=== PATIENT | male | born 1975 | race American Indian/Alaskan Native ===

== ENCOUNTER 2019-02-03 10:28 | Emergency (ER) | payer OTHER ==
[2019-02-03 10:42] VITALS: BP 138/90
--- NOTE | 2019-02-03 11:25 | Emergency Department Report ---
ED ENT HPI - General Chief complaint: Urogenital-Male Stated complaint: CHECK UP/STD Time Seen by Provider: 02/03/19 11:10 Source: patient Mode of arrival: Ambulatory Limitations: No Limitations - History of Present Illness Initial comments: 43-year-old -[place] male presents to the emergency department complaining of a 4-6 year history of bilateral nasal congestion and sinus pressure, which does show minimal response to nasal sterilizing oral antihistamines.. Reports no fever, chills, sweats, has not yet followed up with his primary care provider or seen an director of reimbursement for this. This issue. Stasis sporadically throughout the course of the year, not just in the spring off all months. -: Gradual Severity: mild Quality: dull Consistency: constant Improves with: none Associated Symptoms: other (also here to be treated for an STD as his diagnosed with trichomoniasis. States he is asymptomatic. No testicular pain, no penile discharge. Pain no dysuria, no polyuria, no fever, chills, sweats). denies: pain with swallowing, sore throat, tinnitus - Related Data Home Medications Medication Instructions Recorded Confirmed Last Taken Ibuprofen [Motrin] 800 mg PO TID PRN 08/29/13 08/29/13 08/29/13 12:07 Previous Rx's Medication Instructions Recorded Last Taken Type Cyclobenzaprine [Flexeril] 10 mg PO TID #12 tab 08/29/13 Unknown Rx Hydrocodone Bit/Acetaminophen 1 each PO Q6H PRN #12 tablet 08/29/13 Unknown Rx [Lortab 5-500 Tablet] Albuterol Sulfate [Ventolin HFA] 2 puff IH Q4H PRN #1 hfa.aer.ad 09/02/13 Unknown Rx Azithromycin [Zithromax Z-LEAH] 250 mg PO DAILY #6 tab 09/02/13 Unknown Rx Hydrocodone Bit/Homatrop Me-Br 5 ml PO Q4H PRN #80 ml 09/02/13 Unknown Rx [Hydrocodone-Homatropine Syr 5-1.5 mg/5ml] Prednisone 40 mg PO QDAY #10 tablet 09/02/13 Unknown Rx Olopatadine HCl [Patanase] 1 spray NS DAILY #30 g 02/03/19 Unknown Rx metroNIDAZOLE [Flagyl] 2,000 mg PO ONCE #4 tablet 02/03/19 Unknown Rx Allergies Allergy/AdvReac Type Severity Reaction Status Date / Time No Known Allergies Allergy Verified 02/03/19 10:31 ED Dental HPI - General Chief complaint: Urogenital-Male Stated complaint: CHECK UP/STD Time Seen by Provider: 02/03/19 11:10 Source: patient Mode of arrival: Ambulatory Limitations: No Limitations - Related Data Home Medications Medication Instructions Recorded Confirmed Last Taken Ibuprofen [Motrin] 800 mg PO TID PRN 08/29/13 08/29/13 08/29/13 12:07 Previous Rx's Medication Instructions Recorded Last Taken Type Cyclobenzaprine [Flexeril] 10 mg PO TID #12 tab 08/29/13 Unknown Rx Hydrocodone Bit/Acetaminophen 1 each PO Q6H PRN #12 tablet 08/29/13 Unknown Rx [Lortab 5-500 Tablet] Albuterol Sulfate [Ventolin HFA] 2 puff IH Q4H PRN #1 hfa.aer.ad 09/02/13 Unknown Rx Azithromycin [Zithromax Z-LEAH] 250 mg PO DAILY #6 tab 09/02/13 Unknown Rx Hydrocodone Bit/Homatrop Me-Br 5 ml PO Q4H PRN #80 ml 09/02/13 Unknown Rx [Hydrocodone-Homatropine Syr 5-1.5 mg/5ml] Prednisone 40 mg PO QDAY #10 tablet 09/02/13 Unknown Rx Olopatadine HCl [Patanase] 1 spray NS DAILY #30 g 02/03/19 Unknown Rx metroNIDAZOLE [Flagyl] 2,000 mg PO ONCE #4 tablet 02/03/19 Unknown Rx Allergies Allergy/AdvReac Type Severity Reaction Status Date / Time No Known Allergies Allergy Verified 02/03/19 10:31 ED Review of Systems ROS: Stated complaint: CHECK UP/STD Other details as noted in HPI Constitutional: denies: chills, fever Eyes: denies: eye pain, eye discharge, vision change ENT: denies: ear pain, throat pain Respiratory: denies: cough, shortness of breath, wheezing Cardiovascular: denies: chest pain, palpitations Endocrine: no symptoms reported Gastrointestinal: denies: abdominal pain, nausea, diarrhea Genitourinary: denies: urgency, dysuria Musculoskeletal: denies: back pain, joint swelling, arthralgia Skin: denies: rash, lesions Neurological: denies: headache, weakness, paresthesias Psychiatric: denies: anxiety, depression Hematological/Lymphatic: denies: easy bleeding, easy bruising ED Past Medical Hx - Past Medical History Previous Medical History?: No - Surgical History Hx Appendectomy: Yes - Social History Smoking Status: Never Smoker Substance Use Type: None - Medications Home Medications: Home Medications Medication Instructions Recorded Confirmed Last Taken Type Cyclobenzaprine [Flexeril] 10 mg PO TID #12 tab 08/29/13 Unknown Rx Hydrocodone Bit/Acetaminophen 1 each PO Q6H PRN #12 tablet 08/29/13 Unknown Rx [Lortab 5-500 Tablet] Ibuprofen [Motrin] 800 mg PO TID PRN 08/29/13 08/29/13 08/29/13 12:07 History Albuterol Sulfate [Ventolin HFA] 2 puff IH Q4H PRN #1 hfa.aer.ad 09/02/13 Unknown Rx Azithromycin [Zithromax Z-LEAH] 250 mg PO DAILY #6 tab 09/02/13 Unknown Rx Hydrocodone Bit/Homatrop Me-Br 5 ml PO Q4H PRN #80 ml 09/02/13 Unknown Rx [Hydrocodone-Homatropine Syr 5-1.5 mg/5ml] Prednisone 40 mg PO QDAY #10 tablet 09/02/13 Unknown Rx Olopatadine HCl [Patanase] 1 spray NS DAILY #30 g 02/03/19 Unknown Rx metroNIDAZOLE [Flagyl] 2,000 mg PO ONCE #4 tablet 02/03/19 Unknown Rx ED Physical Exam - General Limitations: No Limitations General appearance: alert, in no apparent distress - Head Head exam: Present: atraumatic, normocephalic - Eye Eye exam: Present: normal appearance, PERRL, EOMI Pupils: Present: normal accommodation - ENT ENT exam: Present: normal exam, normal orophraynx, mucous membranes moist, other (nasal congestion bilaterally with sinus swelling to the nasal turbinates. Drainage is clear.) - Neck Neck exam: Present: normal inspection, full ROM - Respiratory Respiratory exam: Present: normal lung sounds bilaterally. Absent: respiratory distress, wheezes, rales, rhonchi, chest wall tenderness, accessory muscle use - Cardiovascular Cardiovascular Exam: Present: regular rate, normal rhythm. Absent: systolic murmur, diastolic murmur, rubs, gallop - GI/Abdominal GI/Abdominal exam: Present: soft, normal bowel sounds - Rectal Rectal exam: Present: deferred - Extremities Exam Extremities exam: Present: normal inspection - Back Exam Back exam: Present: normal inspection - Neurological Exam Neurological exam: Present: alert, oriented X3 - Psychiatric Psychiatric exam: Present: normal affect, normal mood - Skin Skin exam: Present: warm, dry, intact, normal color. Absent: rash ED Course Vital Signs 02/03/19 10:40 Temperature 98.1 F Pulse Rate 83 Respiratory 16 Rate Blood Pressure 138/90 Blood Pressure 138/90 [Left] O2 Sat by Pulse 98 Oximetry Critical care attestation.: If time is entered above; I have spent that time in minutes in the direct care of this critically ill patient, excluding procedure time. ED Disposition Clinical Impression: Nasal congestion, Possible exposure to STD Disposition: DC-01 TO HOME OR SELFCARE Is pt being admited?: No Does the pt Need Aspirin: No Condition: Stable Instructions: Sexually Transmitted Diseases (ED), Trichomoniasis (ED), Allergies (ED) Prescriptions: metroNIDAZOLE [Flagyl] 2,000 mg PO ONCE #4 tablet Olopatadine HCl [Patanase] 1 spray NS DAILY #30 g Referrals: KIMBERLY MEDRANO MD [Primary Care Provider] - 3-5 Days
== END 2019-02-03 11:38 | disposition home or self-care (01) ==
LOC: ED 10:28
DX: R09.81 Nasal congestion (principal); J34.89 Other specified disorders of nose and nasal sinuses; Z20.2 Contact with and (suspected) exposure to infections with a predominantly sexual mode of transmission; Z90.89 Acquired absence of other organs
CPT/HCPCS: 99282

== ENCOUNTER 2019-06-20 10:58 | Emergency (ER) | payer OTHER ==
--- NOTE | 2019-06-20 11:37 | Emergency Department Report ---
Blank Doc - Documentation Documentation: This is a 43-year-old male that presents with lower back pain after heavy pull ing at work. Denies any trauma or urinary symptoms. This initial assessment/diagnostic orders/clinical plan/treatment(s) is/are subject to change based on patient's health status, clinical progression and re- assessment by fellow clinical providers in the ED. Further treatment and workup at subsequent clinical providers discretion. Patient/guardians urged not to elope from the ED as their condition may be serious if not clinically assessed and managed. Initial orders include: 1- Patient sent to [facility] for further evaluation and treatment
--- NOTE | 2019-06-20 14:30 | Emergency Department Report ---
ED Back Pain/Injury HPI - General Chief Complaint: Back Pain/Injury Stated Complaint: INJURED BACK FROM WORK Time Seen by Provider: 06/20/19 11:36 Source: patient Limitations: No Limitations - Related Data Previous Rx's Medication Instructions Recorded Last Taken Type Cyclobenzaprine [Flexeril] 10 mg PO TID PRN #10 tablet 06/20/19 Unknown Rx Ibuprofen [Motrin] 800 mg PO Q8HR PRN #30 tablet 06/20/19 Unknown Rx predniSONE [Deltasone] 20 mg PO DAILY #5 tablet 06/20/19 Unknown Rx Allergies Allergy/AdvReac Type Severity Reaction Status Date / Time No Known Allergies Allergy Verified 02/03/19 10:31 ED Review of Systems ROS: Stated complaint: INJURED BACK FROM WORK Other details as noted in HPI Comment: All other systems reviewed and negative ED Past Medical Hx - Past Medical History Medical history: no medical history Surgical history: other (appy) Family history: no significant family history ED Back Pain Physical Exam - Exam General: Vital signs noted. No distress. Alert and acting appropriately. 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 ED Disposition Clinical Impression: Lumbar strain, Elevated blood pressure reading Disposition: DC-01 TO HOME OR SELFCARE Is pt being admited?: No Does the pt Need Aspirin: No Condition: Stable Instructions: Muscle Strain (ED) Additional Instructions: WARM BATHS MEDS ORDERED LOW FAT LOW SALT DIET DRINK A LOT OF WATER MONITOR YOUR BLOOD PRESSURE FOLLOW UP WITH PCP FOR BP REFERRAL BELOW FOLLOW UP WITH ORTHO MD IF BACK PAIN PERSISTS REFERRAL BELOW Referrals: TASH CLEMENTE MD [Staff Physician] - 3-5 Days GIN WADE MD [Staff Physician] - 3-5 Days Time of Disposition: 15:39
[2019-06-20] MEDS ORDERED: DEPO-Medrol IM ONE (14:31)
[2019-06-20] MEDS ORDERED: CATAPRES PO ONE (14:31)
[2019-06-20] MEDS ORDERED: IBUPROFEN PO ONE (14:31)
[2019-06-20] MEDS ORDERED: FLEXERIL PO ONE (14:31)
[2019-06-20 16:01] VITALS: BP 139/93
--- NOTE | 2019-06-20 16:26 | XRay Report ---
CHEST 2 VIEWS INDICATION: Chest pain. Right thoracic rib pain COMPARISON: None FINDINGS: Support devices: None. Heart: Within normal limits. Lungs/pleura: No acute air space or interstitial disease. No pneumothorax. Additional findings: No displaced rib fracture is identified on x-ray. IMPRESSION: No acute findings. Signer Name: Mike Arcos Jr, MD Signed: 06/20/2019 4:21 PM Workstation Name: [id number]
== END 2019-06-20 16:01 | disposition home or self-care (01) ==
LOC: ED 10:58
DX: S39.012A Strain of muscle, fascia and tendon of lower back, initial encounter (principal); R03.0 Elevated blood-pressure reading, without diagnosis of hypertension; X58.XXXA Exposure to other specified factors, initial encounter; Y93.89 Activity, other specified; Y92.89 Other specified places as the place of occurrence of the external cause; Y99.8 Other external cause status
CPT/HCPCS: 71046; 96372; 99283; J1040